=== PATIENT | male | born 1950 | race Hispanic/Latino ===

== ENCOUNTER 2018-03-03 07:30 | Day surgery (SDC) | payer OTHER ==
--- NOTE | 2018-02-27 16:07 | RAD REPORT ---
EXAM DESCRIPTION: Lashonda Chacon (2 Views)02/27/2018 3:53 pm CLINICAL HISTORY: Preop/abdominal pain/inguinal hernia repair COMPARISON: None FINDINGS: The lungs appear clear of acute infiltrate. The heart is normal size IMPRESSION: No acute abnormalities displayed
[2018-02-27 16:21] LABS: Absolute Lymphocytes (CBC) 1.2 K/uL (0.7-4.9); Absolute Monocytes 0.6 K/uL (0.1-1.3); Absolute Neutrophil 5.7 K/uL (1.8-8.0); Basophils % 0.3 % (0-1.3); Hematocrit 40.8 % (39.6-49.0); Lymphocytes % 15.2 % (15.3-44.8); MCH 30.6 pg (27.0-35.0); MCV 88.4 fL (80-100); MPV 9.6 fL (7.6-11.3); Monocytes % 7.9 % (3.3-12.3); RBC Red Blood Cell Count 4.61 M/uL (4.33-5.43)
--- NOTE | 2018-02-28 06:17 | EKG ---
Test Date: 2018-02-27 Test Time: 15:44:42 Service Support Representative: ANN MEASUREMENT RESULTS: Intervals: Rate: 60 ND: 174 QRSD: 96 QT: 410 QTc: 410 [place]: P: 35 ND: 174 QRS: 13 T: 21 INTERPRETIVE STATEMENTS: Normal sinus rhythm Normal ECG Compared to ECG 06/01/1999 15:18:00 Sinus bradycardia no longer present Electronically Signed On 02-28-18 06:17:01 CDT by Lonny Dawson
[2018-03-03] MEDS ORDERED: NA CHLORIDE 0.9% 1,000 ML ONE ×2 (07:45→09:16)
[2018-03-03] MEDS ORDERED: CEFAZOLIN/SWI 1gm 1 GM/10 ML SYR ONE (07:46)
[2018-03-03] MEDS ORDERED: MIDAZOLAM HCL 2 MG/2 ML INJ ONE (07:50)
[2018-03-03] MEDS ORDERED: PROPOFOL 200 MG/20 ML VIAL IV ONE (07:50)
[2018-03-03] MEDS ORDERED: GLYCOPYRROLATE 0.2 MG/ML SYR ONE ×2 (07:51→09:32)
[2018-03-03] MEDS ORDERED: LIDOCAINE 2% MPF 5 ML VIAL ONE (07:51)
[2018-03-03] MEDS ORDERED: FENTANYL CITR 250 MCG/5 ML ONE (07:52)
[2018-03-03] MEDS ORDERED: NEOSTIGMINE 1 MG/ML -5 ML SYRINGE ONE ×2 (07:54→09:18)
[2018-03-03] MEDS ORDERED: ROCURONIUM 50 MG/5 ML VIAL IV ONE (07:54)
[2018-03-03] MEDS ORDERED: ONDANSETRON HCL 40 MG/20 ML VIAL ONE (07:54)
[2018-03-03] MEDS ORDERED: EPHEDRINE SULF 50 MG/5 ML SYR ONE (08:58)
[2018-03-03] MEDS ORDERED: DEXAMETHASONE 10 MG/ML VIAL ONE (09:05)
--- NOTE | 2018-03-03 09:53 | P.BOP ---
Preoperative diagnosis: bilateral inguinal hernias Postoperative diagnosis: same Primary procedure: 1. Lapascopic repair of tender right inguinal hernia with mesh Secondary procedure: 2. Lapascopic repair of tender left inguinal hernia with mesh [employer] Senior Sergeant: Corazon Cruz) Estimated blood loss: <10cc Specimen: none Findings: as above Anesthesia: Spinal Complications: None Implants: 3d mesh bilateral Transferred to: Recovery Room Condition: Good
[2018-03-03] MEDS ORDERED: ONDANSETRON 4 MG/2 ML VIAL ONE (09:54)
[2018-03-03] MEDS ORDERED: MEPERIDINE HCL 25 MG/0.5 ML ONE (10:07)
[2018-03-03] MEDS ORDERED: HYDROCODONE/APAP 5/325 MG TAB ONE (11:01)
--- NOTE | 2018-03-04 14:19 | OP ---
Date of Procedure: 03/03/2018 Surgeon: Rajesh Miller MD Maintenance Department Manager: NIRAJ Mackay Preoperative Diagnosis: Bilateral inguinal hernias, tender. Postoperative Diagnosis: Bilateral inguinal hernias, tender. Procedures: 1.Laparoscopic repair of tender right inguinal hernia with mesh. 2.Laparoscopic repair of left inguinal hernia with mesh. Estimated Blood Loss: Less than 10 cc. Specimen: None. Findings: Bilateral inguinal hernias. Anesthesia: General plus local. Implant: A 3D mesh, bilateral. Indications: This is the case of a male, who comes to us with tender bilateral inguinal hernias, get ting pain and discomfort, increasing in size. The benefits, alternatives, and risks of repair with m esh, laparoscopic versus open fully explained to the patient, which include, but are not limited to i nfection, bleeding, damage to adjacent structures, anesthesia complication, recurrence, chronic pain, chronic numbness, testicular damage, MD, and even . He also understands this may not relieve a ny symptoms. He might need more than one surgical intervention. He also understands the pros and co ns of mesh placement. All the question were answered to his satisfaction. He was advised also the i mportance of not gaining weight and also not doing heavy lifting. He signed a consent. Description Of Procedure: The patient was brought to the operating room, placed in supine position. Anesthesia was done without complication. A time-out was called. Bilateral inguinal and abdominal area were prepped and draped in usual sterile fashion. Lidocaine 1% plain injected for local anesthe tic, followed by sharp incision of the skin in the infraumbilical region. The anterior rectus sheath was then opened on the right side. The muscle was retracted laterally to expose the posterior rectu s sheath. The extraperitoneal space was gently developed by blunt dissection and a space-maker ballo on tipped catheter was directed to the pubic symphysis under direct visualization with the scope. Th e balloon was inflated under direct visualization to create the extraperitoneal space. The balloon w as then removed. The area was inflated. A 5-mm trocar was placed just above the pubic symphysis and another one midway between the first and second one. The preperitoneal space was further developed on the right side by exposing the inferior epigastric vessels and keeping them anterior. Jose D's li gament was dissected laterally to the junction with the iliac veins. The dissection was continued in feriorly to the iliopubic tract, avoiding damage to the femoral branch of the genitofemoral nerve, an d lateral and femoral cutaneous nerve. The cord structures were carefully skeletonized. The hernia sac was identified and reduced by gentle traction. The procedure was repeated in the contralateral s kym with the same findings and same technique. Once again, the hernia sac was identified and reduced into the peritoneal space with gentle traction. At this moment, we proceeded to place a 3D mesh on the left side first. I arranged that mesh to cover the direct and indirect spaces. The mesh was sec ured in place with SorbaFix laterally and superior to the iliopubic tract and inferomedial to Jose D' s ligament. Same was done on the right side with the same kind of mesh for the right side. We made sure we have good hemostasis of the area. We sprayed some local anesthetic over the area and then ma udstin sure that we keep the hernia sac reduced into the peritoneal cavity, we proceeded to deflate the area under direct visualization. Trocars were removed. Area was deflated and then we proceeded to close the fascia with #1 Vicryl, irrigated subcutaneous tissue, closed the skin with 3-0 chromic in a subcuticular fashion. The patient tolerated the procedure well. At the end of the case, testicles were in the scrotum. The patient sent to recovery in stable condition. Diagnoses: Bilateral inguinal hernias, tender. Procedures: Laparoscopic repair of right and left inguinal hernia with mesh. Disposition: Home. Activity: As tolerated. No heavy lifting. Followup: Follow up in my office in 1 week. Call for appointment at [phone]. Keep the area dry fo r 48 hours, then may shower. Keep Steri-Strips intact. Medications: See orders. HM/MODL Voice ID: [id number] Report ID: [id number]
== END 2018-03-03 13:11 | disposition home or self-care (01) ==
LOC: OR 07:30
PROVIDERS: ATTEND Surgery
PROC: 0YUA4JZ Supplement Bilateral Inguinal Region with Synthetic Substitute, Percutaneous Endoscopic Approach (ICD-10-PCS; principal; 2018-03-03 08:30)
DX: K40.20 Bilateral inguinal hernia, without obstruction or gangrene, not specified as recurrent (principal); E11.9 Type 2 diabetes mellitus without complications; I10 Essential (primary) hypertension; K21.9 Gastro-esophageal reflux disease without esophagitis; Z83.3 Family history of diabetes mellitus; Z82.49 Family history of ischemic heart disease and other diseases of the circulatory system; Z82.5 Family history of asthma and other chronic lower respiratory diseases
CPT/HCPCS: 36415; 71046; 80048; 82962; 85025; 93005; J0690; J1100; J2175; J2250; J2405; J2710; J7030